=== PATIENT | male | born 1990 | race Caucasian/White ===

== ENCOUNTER 2016-08-25 10:31 | Day surgery (SDC) | payer OTHER ==
[2016-08-24 10:39] VITALS: BMI 36.3
--- NOTE | 2016-08-25 09:13 | HP ---
History & Physical Update - History History: No Change - Physical Physical: No Change - Assessment Assessment: No Change - Plan Plan: No Change (Right inguinal hernia for surgical repair. Consent obtained. Risks, benefits and alternatives are explained.)
[2016-08-25] MEDS ORDERED: PROPOFOL 20 ML ONE ×2 (10:51)
[2016-08-25] MEDS ORDERED: DEXAMETHASONE SOD PHOSPHATE 4 MG/1 ML VIAL ONE (12:10)
[2016-08-25] MEDS ORDERED: LIDOCAINE HCL 1%, 10 MG/ML (20ML VIAL) ONE (12:30)
[2016-08-25] MEDS ORDERED: ceFAZolin SODIUM 1 GM VIAL ONE (12:40)
[2016-08-25] MEDS ORDERED: ceFAZolin SODIUM 1 GM VIAL IVPB ONE (12:43)
[2016-08-25] MEDS ORDERED: HYDROmorphone HCL/PF 1 MG/ML VIAL (FOR PYXIS CHARGING ONLY) ONE (13:12)
--- NOTE | 2016-08-25 14:09 | OP ---
Operative Note - Note: Operative Date: 08/25/16 Pre-Operative Diagnosis: Right inguinal hernia. Operation: Repair of right inguinal hernia with plug and mesh. Findings: Large direct defect of right groin, very obese. repaired with 2 plugs and a mesh. Surgeon: Erin Phillip Branch Officer: Mirian Noonan Anesthesia: General Specimens Removed: None Estimated Blood Loss (mls): 10 Operative Report Dictated: Yes
[2016-08-25] MEDS ORDERED: PROMETHAZINE HCL 25 MG/1 ML VIAL IVPUSH PRN (15:32)
[2016-08-25] MEDS ORDERED: oxyCODONE HCL 5 MG TABLET PO PRN (15:32)
[2016-08-25] MEDS ORDERED: LACTATED RINGERS SOLUTION 1,000 ML IV SCH (15:45)
[2016-08-25] MEDS ORDERED: oxyCODONE HCL 5 MG TABLET ONE (16:10)
[2016-08-25 16:45] VITALS: TEMP 98.2
[2016-08-25 18:19] VITALS: BP 134/80; PULSE 94
--- NOTE | 2016-08-26 12:12 | OP ---
DATE OF OPERATION: 08/25/2016 PREOPERATIVE DIAGNOSIS: Large right inguinal hernia. POSTOPERATIVE DIAGNOSIS: Large defect right inguinal hernia. OPERATIVE PROCEDURE: Repair of right inguinal hernia with plug and mesh. SURGEON: Erin Phillip MD HOST: MICHAEL Robb ANESTHESIA: General anesthesia. OPERATIVE INDICATIONS: This 26-year-old man, who is morbidly obese, had a large defect in the right groin with pain and intermittent bulge. The patient was brought in for repair of the hernia. The risks, benefits, and complications have been discussed with the patient and consent obtained. DESCRIPTION OF THE PROCEDURE: The patient was brought to the operating room. General anesthesia was administered. The right groin was painted and draped. The patient was given a gram of Ancef. A time-out was called. An incision was made in the right groin at the level of the skin crease, which was deepened inside the skin of large subcutaneous fat of [place] fascia. The external oblique aponeurosis was incised in the direction of the fibers to open the inguinal ligament. The ilioinguinal nerve was identified and preserved throughout the procedure. The cord structures were then isolated with a 1/2-inch [place] drain. This was followed all the way to the internal ring. The patient had a large posterior wall defect with bulging of fat through the transversalis fascia. He did not have an indirect sac. The fat behind the transversalis fascia was then all the way to the pubic tubercle and pubic symphysis. Two large plugs were then inserted behind the transversalis fascia through the internal ring. They were anchored with 2-0 Prolene sutures passed through the internal ring and transverse abdominis muscle, brought through the internal ring, and was then brought through the outer leaf of the plug and was then reintroduced through the internal ring and brought out through the transverse abdominis muscle and fascia and internal oblique muscle and fascia. Three such sutures were obtained. One all the way medially, another went through the pubic tubercle and internal ring, and the third above and lateral to the internal ring. The plug was then inserted through the internal ring to replace the anterior transverse abdominis muscle and fascia. Once this was done, a large mesh was then interposed between the shelving edge of the inguinal ligament and the defect. This was placed over the internal oblique muscle. This was anchored at the level of the pubic tubercle with 2-0 Prolene sutures. The inferior leaf of the mesh was then placed over the shelving edge of the inguinal ligament and anchored with Versa Tack tacking device. The superior leaf of the mesh was placed over the internal oblique muscle and the Prolene sutures holding the plug behind the transversalis fascia was brought through the mesh and the knot was fashioned. The lateral Prolene suture was brought through both leaves of the mesh as it came around the internal ring over the cord structures thus reforming a new internal ring. [place] the mesh was adequately placed over the defect and placed over the internal oblique muscle. A few tackers were then placed to place the mesh over the internal oblique muscle. The defect was adequately repaired. The wound was irrigated. Sponge count and instrument was correct. The external oblique aponeurosis was approximated with continuous 3-0 Vicryl sutures and a new external ring was formed. The fascia was then approximated with buried interrupted 3-0 Vicryl sutures. The subcutaneous fat again was approximated with buried interrupted 3-0 Vicryl sutures and the skin approximated with continuous 4-0 Biosyn sutures in a running subcuticular fashion. Dermabond was applied across the skin edges. Estimated blood loss was 10 mL. The sponge count and instrument count was correct. The patient was sent to the recovery room in satisfactory and stable condition. Adelina [id number]
--- NOTE | 2016-08-29 10:42 | SURG ---
Surgery Curb Attendant Note Curb Attendant: Mirian Noonan PA-C Date of Service: 08/25/16 Diagnosis: Right inguinal hernia. Procedure: Repair of right inguinal hernia with plug and mesh. I was present for the operative procedure. For further detail, please refer to operative report. Visit type - Case Type Case Type: Scheduled Admission
== END 2016-08-25 17:00 | disposition home or self-care (01) ==
LOC: JASU-SURG 10:31
PROVIDERS: ATTEND Specialist
PROC: 0YU50JZ Supplement Right Inguinal Region with Synthetic Substitute, Open Approach (ICD-10-PCS; principal; 2016-08-25 11:30)
DX: K40.90 Unilateral inguinal hernia, without obstruction or gangrene, not specified as recurrent (principal); E03.9 Hypothyroidism, unspecified; E66.01 Morbid (severe) obesity due to excess calories; Z68.36 Body mass index [BMI] 36.0-36.9, adult
CPT/HCPCS: 94760